=== PATIENT | female | born 1995 | race Two or more races ===

== ENCOUNTER 2021-03-15 17:49 | Emergency (ER) | payer OTHER ==
[~2021-03-15] VITALS: Ht 162.6 cm; Wt 57.2 kg
== END 2021-03-15 19:28 | disposition home or self-care (01) ==
LOC: ER 17:49
DX: S13.4XXA Sprain of ligaments of cervical spine, initial encounter (principal); V49.88XA Car occupant (driver) (passenger) injured in other specified transport accidents, initial encounter; Y93.89 Activity, other specified; Y92.488 Other paved roadways as the place of occurrence of the external cause; Y99.8 Other external cause status